=== PATIENT | female | born 1945 | race Caucasian/White ===

== ENCOUNTER → 2016-12-03 | Outpatient (CLI) | payer BC ==
--- NOTE | 2016-12-04 07:59 | DX ---
DEXA Bone Densitometry Technique: DEXA scan was performed on [employer] Discovery W Bone Densitometer Indication: Screening examination Comparator Study: None Results: Lumbar Spine BMD: 1.088 T-score: +0.4 Total Hip (Right) BMD: 0.866 T-score: -0.6 Femoral Neck (Right) BMD: 0.709 T-score: -1.3 Total Hip (Left) BMD: 0.799 T-score: -1.2 Femoral Neck (Left) BMD: 0.719 T-score: -1.2 CONCLUSION: Osteopenia ADDITIONAL COMMENTS: By FRA X calculation, the estimated 10 year risk of any osteoporotic fracture is 23%. The estimated 10 year risk of hip fracture is 2.9%. This patient meets the [employer] guidelines for pharmacologic treatment based on 10 year osteoporotic fracture risk greater than 20%. Recommend further treatment to prevent fractures and increased bone mineral density. Consider repeating the study in 2 years NOTE: The risk of osteoporotic fractures increases approximately twofold for each 1.0 SD decrease i n T-score. The T-score represents the standard deviations from a young normal, same sex, reference population. Low bone density is not the only risk factor for fracture. Clinical factors to consider include fal l risk, previous osteoporotic fractures, family history of fractures, smoking, and low body weight. Patients who have an unexpectedly low BMD may need to be evaluated for secondary causes of low bone mineral density. In comparing the present study to a prior study, lack of a significant increase or decrease in BMD m ay signify efficacy of the patient's present treatment. Bone mineral density measurements performed with densitometers produced by different manufacturers a re not comparable. For the most reproducible BMD measurement, subsequent exams should be performed on the same densitometer.
== END ==
LOC: BMCIMAGING 11:00
PROVIDERS: ATTEND Internal Medicine
DX: Z13.820 Encounter for screening for osteoporosis (principal); M85.80 Other specified disorders of bone density and structure, unspecified site